=== PATIENT | male | born 1990 ===

== ENCOUNTER 2022-07-31 19:08 | Emergency (ER) | payer SELFPAY ==
[~2022-07-31] VITALS: Ht 193 cm; Wt 165.6 kg
== END 2022-07-31 21:30 | disposition home or self-care (01) ==
LOC: ER 19:08
DX: S01.81XA Laceration without foreign body of other part of head, initial encounter (principal); S06.0X0A Concussion without loss of consciousness, initial encounter; W22.8XXA Striking against or struck by other objects, initial encounter; Z88.0 Allergy status to penicillin; Z23 Encounter for immunization
CPT/HCPCS: 90714